=== PATIENT | female | born 1990 | race Two or more races ===

== ENCOUNTER 2020-09-10 07:54 | Day surgery (SDC) | payer OTHER ==
[2020-09-07 14:53] LABS: MICROSCOPIC NOT IND
[2020-09-07 14:55] LABS: BASOPHILS % (AUTO) 0 % (0-1); EOSINOPHILS % (AUTO) 1 % (1-7); LYMPHOCYTES % (AUTO) 39 % (22-44); MEAN CORPUSCULAR HEMOGLOBIN 31.8 pg (27.0-34.8); MEAN CORPUSCULAR HGB CONC 34.6 g/dL (32.4-35.8); MEAN PLATELET VOLUME 8.3 fL (7.4-10.4); MONOCYTES % (AUTO) 13 % (2-9); NEUTROPHILS % (AUTO) 47 % (42-75); PLATELET COUNT 296 x10^3/uL (130-400); RED BLOOD COUNT 4.13 x10^6/uL (3.82-5.3); RED CELL DISTRIBUTION WIDTH 12.1 % (9.6-15.2)
[2020-09-07 15:02] LABS: MD NO
[2020-09-07 15:06] LABS: ANION GAP 5 mmol/L (5-15); CALCIUM 8.8 mg/dL (8.5-10.1); CHLORIDE 111 mmol/L (98-107)
[2020-09-07 15:13] LABS: ALANINE AMINOTRANSFERASE 20 U/L (12-78); ALKALINE PHOSPHATASE 42 U/L (45-117); BILIRUBIN,TOTAL 0.5 mg/dL (0.2-1.0); CREATININE 0.62 mg/dL (0.55-1.02); TOTAL PROTEIN 7.8 g/dL (6.4-8.2)
[~2020-09-10] VITALS: Ht 157.5 cm; Wt 70.5 kg
[2020-09-10 08:25] VITALS: BP 116/84
[2020-09-10] MEDS ORDERED: CHLORHEXIDINE 15 ML UDC MM ONE (08:30)
[2020-09-10] MEDS ORDERED: LACTATED RINGERS 1,000 ML IV SCH (08:30)
[2020-09-10 08:58] LABS: HCG UR SG 1.019 (1.003-1.030)
[2020-09-10] MEDS ORDERED: HALOPERIDOL 5 MG/ML IV PRN (09:30)
[2020-09-10] MEDS ORDERED: PROMETHAZINE 25 MG/ML, 1ML IVPush PRN (09:30)
[2020-09-10] MEDS ORDERED: HYDROmorphone 1 MG/ML, 1ML INJ IVPush PRN (09:30)
[2020-09-10] MEDS ORDERED: HYDROcodone/APAP 7.5-325MG/15ML UDC PO PRN (09:30)
[2020-09-10] MEDS ORDERED: MEPERIDINE/PF 25MG/0.5ML IVPush PRN (09:30)
[2020-09-10] MEDS ORDERED: hydrALAzine 20 MG/ML, 1ML IV PRN (09:30)
[2020-09-10] MEDS ORDERED: MIDAZOLAM 1 MG/ML, 2ML ONE (09:30)
[2020-09-10] MEDS ORDERED: FENTANYL PF 250 MCG/5ML ONE (09:30)
[2020-09-10] MEDS ORDERED: LABETALOL 5MG/ML, 20ML IV PRN (09:30)
[2020-09-10] MEDS ORDERED: FENTANYL PF 100 MCG/2ML IV PRN (09:30)
[2020-09-10] MEDS ORDERED: DIPHENHYDRAMINE 50 MG/ML, 1ML IVPush PRN (09:30)
[2020-09-10] MEDS ORDERED: EPINEPHRINE 1 MG/ML, 1ML ONE (09:43)
[2020-09-10] MEDS ORDERED: BUPIVACAINE/PF 0.25% ONE (09:43)
[2020-09-10] MEDS ORDERED: SILVER NITRATE STICK TP ONE ×2 (09:44→09:46)
[2020-09-10] MEDS ORDERED: DEXAMETHASONE 4 MG/ML, 5ML ONE (10:14)
[2020-09-10] MEDS ORDERED: KETOROLAC 30 MG/1 ML ONE (10:21)
[2020-09-10] MEDS ORDERED: PROPOFOL 10 MG/ML, 20ML ONE (10:42)
[2020-09-10] MEDS ORDERED: GLYCOPYRROLATE 0.2MG/1ML, 5ML ONE (10:42)
[2020-09-10] MEDS ORDERED: ONDANSETRON 2MG/ML, 2ML ONE (10:42)
[2020-09-10] MEDS ORDERED: NEOSTIGMINE 1 MG/ML, 10ML ONE (10:42)
[2020-09-10] MEDS ORDERED: SUCCINYLCHOLINE 20 MG/ML, 10ML ONE (10:42)
[2020-09-10] MEDS ORDERED: ROCURONIUM 10MG/ML,5ML ONE (10:42)
[2020-09-10] MEDS ORDERED: CEFAZOLIN 1,000 MG ONE (10:42)
== END 2020-09-10 12:45 | disposition home or self-care (01) ==
LOC: OUT 07:54
PROVIDERS: ATTEND Obstetrics & Gynecology
DX: Z30.2 Encounter for sterilization (principal); Z20.822 Contact with and (suspected) exposure to COVID-19; Z79.899 Other long term (current) drug therapy
CPT/HCPCS: 36415; 58670; 80053; 81003; 81025; 84702; 85025; 86850; 86900; 88302; J0171; J0330; J0690; J1100; J1885; J2250; J2405; J2704; J2710; J3010; J7120; U0003

== ENCOUNTER 2020-09-21 14:31 | Emergency (ER) | payer OTHER ==
[~2020-09-21] VITALS: Ht 157.5 cm; Wt 69.9 kg
[2020-09-21] MEDS ORDERED: ONDANSETRON 2MG/ML, 2ML ONE (15:28)
[2020-09-21] MEDS ORDERED: MORPHINE SULFATE 4 MG/ML, 1ML ONE (15:28)
[2020-09-21] MEDS ORDERED: MORPHINE SULFATE 4 MG/ML, 1ML IVPush PRN (15:30)
[2020-09-21] MEDS ORDERED: ONDANSETRON 2MG/ML, 2ML IVPush ONE (15:30)
[2020-09-21] MEDS ORDERED: SODIUM CHLORIDE 0.9% 1,000ML IVBOLUS ONE (15:30)
--- NOTE | 2020-09-21 15:44 | NUR ---
TASK RN: PT WITH LEFT FLANK PAIN, +N/V X 2 DAYS. DECREASED UOP. PIV EST AND PT MED NOTED, IVF INFUSING W/O DIFFICULTY. PT TO RADIOLOGY WITH TECH TRANSPORT.
[2020-09-21 15:55] LABS: BASOPHILS % (AUTO) 0 % (0-1); EOSINOPHILS % (AUTO) 0 % (1-7); LYMPHOCYTES % (AUTO) 14 % (22-44); MEAN CORPUSCULAR HEMOGLOBIN 31.1 pg (27.0-34.8); MEAN CORPUSCULAR HGB CONC 34.6 g/dL (32.4-35.8); MEAN PLATELET VOLUME 8.2 fL (7.4-10.4); MONOCYTES % (AUTO) 3 % (2-9); NEUTROPHILS % (AUTO) 82 % (42-75); PLATELET COUNT 327 x10^3/uL (130-400); RED CELL DISTRIBUTION WIDTH 11.9 % (9.6-15.2)
[2020-09-21 16:06] LABS: ALBUMIN 4.1 g/dL (3.4-5.0); ANION GAP 9 mmol/L (5-15); CALCIUM 9.1 mg/dL (8.5-10.1); CHLORIDE 110 mmol/L (98-107); CREATININE 0.88 mg/dL (0.55-1.02)
[2020-09-21 16:16] LABS: MD SCAN
[2020-09-21] MEDS ORDERED: KETOROLAC 30 MG/1 ML IVPush ONE (16:30)
--- NOTE | 2020-09-21 16:45 | NUR ---
PT AMBULATES WELL TO BATHROOM AND BACK IN BED. PT REPORTS CONTINUED RELIEF FROM PAIN AT THIS TIME. UA COLLECTED AND SENT TO LAB. STONE EVIDENT IN URINE CUP. NAD NOTED AT THIS TIME.
[2020-09-21 16:54] LABS: MICROSCOPIC AUTO
[2020-09-21 17:54] VITALS: BP 113/67
== END 2020-09-21 18:02 | disposition home or self-care (01) ==
LOC: ED 16:56
DX: N20.1 Calculus of ureter (principal); R10.9 Unspecified abdominal pain
CPT/HCPCS: 36415; 74176; 80048; 81001; 82040; 84703; 85025; 87086; 96361; 96374; 96375; 99284; J2270; J2405; J7030